=== PATIENT | male | born 2000 | race Two or more races ===

== ENCOUNTER 2021-02-28 18:26 | Emergency (ER) | payer SELFPAY ==
[~2021-02-28] VITALS: Ht 162.6 cm; Wt 56.4 kg
--- NOTE | 2021-02-28 20:37 | NUR ---
TO ROOM FROM LOBBY. NAD.
[2021-02-28 20:44] VITALS: BP 128/68
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
== END 2021-02-28 22:13 | disposition home or self-care (01) ==
LOC: ED 22:09
DX: S29.011A Strain of muscle and tendon of front wall of thorax, initial encounter (principal); W18.30XA Fall on same level, unspecified, initial encounter; Y93.89 Activity, other specified; Y92.89 Other specified places as the place of occurrence of the external cause; Y99.8 Other external cause status
CPT/HCPCS: 71045; 99283